=== PATIENT | male | born 1930 | race Caucasian/White ===

== ENCOUNTER 2017-01-03 05:17 | Inpatient (IN) | payer MEDICARE, OTHER ==
[2016-12-28 16:29] VITALS: BMI 27.5
[~2017-01-03] VITALS: Ht 177.8 cm; Wt 85.0 kg
[2017-01-03] VITALS (35 sets, daily range): BP systolic 82–139; BP diastolic 54–85; PULSE 43–97; RESP 9–19; Ht 177.8 cm; Wt 85.0 kg
[2017-01-03] MEDS ORDERED: HYDROCORTISONE 100 MG INJ ONE (06:50)
[2017-01-03] MEDS ORDERED: FENTAnyl 50 MCG/ML VIAL ONE (06:50)
[2017-01-03] MEDS ORDERED: SURGIFOAM POWDER 1 GM KIT ONE (06:52)
[2017-01-03] MEDS ORDERED: THROMBIN 5000 UNIT VIAL ONE (06:52)
[2017-01-03] MEDS ORDERED: CA CHLORIDE 10% 10 ML SYRINGE ONE (06:52)
[2017-01-03] MEDS ORDERED: CEFAZOLIN 1 GM INJ ONE ×2 (06:52→10:03)
--- NOTE | 2017-01-03 06:52 | HPN ---
Date/Time of Note Date/Time of Note DATE: 01/03/17 TIME: 06:51 Interval H&P Admission Note Pt. seen H&P reviewed: No system changes ABBEY CEJA MD Jan 03, 2017 06:52
[2017-01-03] MEDS ORDERED: HEPARIN 1000 UNITS/ML 10 ML INJ ONE (06:53)
[2017-01-03] MEDS ORDERED: HYDROCODONE/APAP (10/325) TAB PO PRN (07:00)
[2017-01-03] MEDS ORDERED: DIPHENHYDRAMINE 50 MG INJ IV PRN ×2 (07:00→09:30)
[2017-01-03] MEDS ORDERED: HYDROmorphONE 0.2 MG/ML PCA IV SCH (07:00)
[2017-01-03] MEDS ORDERED: CEPASTAT LOZENGE MT PRN (07:00)
[2017-01-03] MEDS ORDERED: ONDANSETRON 4 MG INJ IV PRN ×2 (07:00→09:30)
[2017-01-03] MEDS ORDERED: DIPHENHYDRAMINE 25 MG CAP PO PRN (07:00)
[2017-01-03] MEDS ORDERED: CARISOPRODOL 350 MG TAB PO PRN (07:00)
[2017-01-03] MEDS ORDERED: ACETAMINOPHEN 325 MG TAB PO PRN (07:00)
[2017-01-03] MEDS ORDERED: BISACODYL 10 MG SUPP PR PRN (07:00)
[2017-01-03] MEDS ORDERED: NALOXONE (0.4 MG/ML) INJ IV PRN (07:00)
[2017-01-03] MEDS ORDERED: AL HYDROX/MG HYDROX/SIMETH 30 ML CUP PO PRN (07:00)
[2017-01-03] MEDS ORDERED: HYDROmorphONE 0.5 MG/0.5 ML SYG IV PRN (07:00)
[2017-01-03] MEDS: CEFAZOLIN 1 GM/50 ML (PMX) 50 ML IVPB SCH ×3 (07:00→21:26)
[2017-01-03] MEDS ORDERED: VALS320T11 PO (07:20)
[2017-01-03] MEDS ORDERED: DILT240C79 PO (07:20)
[2017-01-03] MEDS ORDERED: CLON0.2T5 PO (07:20)
[2017-01-03] MEDS ORDERED: TRAM50TA2 PO (07:20)
[2017-01-03] MEDS ORDERED: DOCU100C26 PO (07:20)
[2017-01-03] MEDS ORDERED: BUME1TAB18 PO (07:20)
[2017-01-03] MEDS ORDERED: CELE100C PO (07:20)
[2017-01-03] MEDS ORDERED: ASPI-535 PO (07:20)
[2017-01-03] MEDS ORDERED: HYDR-906 PO (07:20)
[2017-01-03] MEDS ORDERED: EZET10TA3 PO (07:20)
[2017-01-03] MEDS ORDERED: ROSU40TA35 PO (07:20)
[2017-01-03] MEDS ORDERED: POTA8CAP PO (07:20)
[2017-01-03] MEDS ORDERED: PRED10TA PO (07:20)
[2017-01-03] MEDS ORDERED: LANS30CA PO (07:20)
[2017-01-03] MEDS ORDERED: MECL-77 PO (07:20)
[2017-01-03] MEDS ORDERED: BUPIVACAINE 0.5%/EPI (SDV) 30 ML INJ ONE (07:59)
[2017-01-03] MEDS ORDERED: CEFAZOLIN 2 GM/50 ML (PMX) 50 ML IVPB SCH (08:00)
[2017-01-03] MEDS ORDERED: LACTATED RINGER'S 1,000 ML IV* ONE (08:00)
[2017-01-03] MEDS ORDERED: CEFAZOLIN 1 GM INJ ZFS ONE (08:10)
[2017-01-03] MEDS ORDERED: THROMBIN 5000 UNIT VIAL TOP ONE (08:10)
[2017-01-03] MEDS ORDERED: SURGIFOAM POWDER 1 GM KIT TOP ONE (08:21)
[2017-01-03] MEDS ORDERED: FENTAnyl 50 MCG/ML VIAL IV PRN (09:30)
[2017-01-03] MEDS ORDERED: HYDROmorphONE (0.2 MG/ML) 10ML SYG IV PRN ×2 (09:30)
[2017-01-03] MEDS ORDERED: LABETALOL HCL 20MG INJ IV PRN (09:30)
[2017-01-03] MEDS ORDERED: METOCLOPRAMIDE 10 MG INJ IV PRN (09:30)
[2017-01-03] MEDS ORDERED: MEPERIDINE 25 MG INJ IV PRN (09:30)
--- NOTE | 2017-01-03 09:37 | RADRPT ---
PROCEDURE: Intraoperative imaging of the lumbar spine with fluoroscopy. CLINICAL INDICATION: Back pain. Intraoperative. TECHNIQUE: Four images of the lumbar spine were obtained in the operating room with an image inten sifier. No radiologist was in attendance. Fluoroscopy time is 6.3 seconds. COMPARISON: No prior study is available for comparison. FINDINGS: Images demonstrate surgical instruments overlying the lumbar spine. IMPRESSION: 1. Intraoperative imaging of the lumbar spine. RPTAT: QQ .Xavi Craig MD, MD Date Time Electronically viewed and signed by .Xavi Craig MD, on 01/03/2017 09:37 .R/
[2017-01-03] MEDS ORDERED: LIDOCAINE 2% (SDV) 5 ML INJ ONE (10:03)
[2017-01-03] MEDS ORDERED: SUGAMMADEX SODIUM 200 MG/2 ML VIAL IV ONE (10:03)
[2017-01-03] MEDS ORDERED: PROPOFOL 20 ML ONE (10:03)
[2017-01-03] MEDS ORDERED: SUCCINYLCHOLINE CHLORIDE 100 MG/5 ML SYG IV ONE (10:03)
[2017-01-03] MEDS ORDERED: ROCURONIUM 50 MG INJ ONE (10:03)
--- NOTE | 2017-01-03 11:09 | SIPON ---
Date/Time of Note Date/Time of Note DATE: 01/03/17 TIME: 11:07 Operative Report Preoperative Diagnosis Lumbar stenosis with retained lumbar hardware Postoperative Diagnosis Lumbar stenosis with retained lumbar hardware Operation/Procedure Performed Lumbar decompression with removal of lumbar hardware Surgeon see signature line campus administrative assistant KASSY Peoples Anesthesia: general Estimated blood loss: 150 - 200 ml's Transfusion Required none Specimen Hardware and spinous process Grafts/Implants none Complications none ABBEY CEJA MD Jan 03, 2017 11:09
[2017-01-03] MEDS: FENTAnyl 50 MCG/ML VIAL IV PRN ×4 (11:43→12:30)
--- NOTE | 2017-01-03 11:44 | OPR ---
DATE OF OPERATION: 01/03/2017 PREOPERATIVE DIAGNOSES: 1. Previous L4-5, L3-4 instrumented fusion. 2. Previous right L4-5 decompression. 3. Spinal stenosis with radiculopathy at L4-5, L5-S1. 4. Status post coronary artery bypass graft x2. POSTOPERATIVE DIAGNOSES: 1. Previous L4-5, L3-4 instrumented fusion. 2. Previous right L4-5 decompression. 3. Spinal stenosis with radiculopathy at L4-5, L5-S1. 4. Status post coronary artery bypass graft x2. PROCEDURE: 1. Removal of lumbar hardware at L3, L4, L5 bilaterally. 2. Evaluation of lumbar fusion at L3-4, L4-5. 3. Revision decompression at L4-5. 4. Central decompression at L5-S1. 5. Decompression of L4, L5 and S1 nerve roots bilaterally. 6. Use of C-arm fluoroscopy with interpretation without radiologist present. 7. Use of allograft. 8. Intraoperative neuromonitoring (3 hours). PRIMARY SURGEON: Uri Cummins MD METAL FABRICATOR HELPER: KASSY Peoples FINDINGS: Neuromonitoring at the start of the case revealed right L3 amplitude down 20%, right L4 amplitude down 50%, left L5 and S1 amplitude down 20%, right L5 amplitude down 30%, right S1 amplitude down 50%. At the end of the case, nerve signals returned to normal. The patient had fusion at L3-4 and L4-5 with stenosis at L4-5 and L5-S1. ESTIMATED BLOOD LOSS: 200 mL. DRAINS: One. SPECIMENS: L5 spinous process and hardware. COMPLICATIONS OF PROCEDURES: None. ANESTHESIOLOGIST: Dr. Maravilla. TYPE OF ANESTHESIA: General. INDICATIONS FOR PROCEDURE: This is an 86-year-old gentleman who has had previous spinal surgeries on 3 occasions including decompression at L4-5 as well as fusion at L3-4 and L4-5. He had failed nonoperative measures, therefore , I recommended proceeding with the above-mentioned surgery given the radiating pains to the lower extremity. DESCRIPTION OF PROCEDURE IN DETAIL: The patient was identified in the preoperative holding area, given Ancef antibiotics in the operating room, where he was successfully placed under general anesthesia. Neuromonitoring leads were placed, sequential compressive devices were applied, Mock catheter was introduced. Arterial line was placed. Neuromonitoring was utilized during the procedure for 3 hours to include SSEP, MEP and EMG. Start time was 8 a.m., closure time was 11 a.m. The patient was placed on the operating table in prone position over the Prem frame. All bony prominences were well padded. The back was then prepped and draped in usual sterile fashion. Using the C-arm fluoroscope, I identified the incision site. I anesthetized the skin with Marcaine and epinephrine. I utilized the patient's previous incision. Skin was incised down to dorsal fascia, it was incised with Bovie cautery. I then subperiosteally dissected from L3-S1. I identified the hardware at L3, L4, and L5. I removed the set screws bilaterally. I removed the terrance. I evaluated the fusion and removed each of the screws. I then placed allograft into the screw holes using Fibergraft. Next, I performed a central decompressive laminectomy at L4-5 and L5-S1. The patient had previous surgery at L4-5 on the right side. There is quite a bit of scar tissue adding at least 45 minutes to the surgery. I was able to decompress the central canal. I decompressed the bilateral L4. L5 and S1 nerve roots. Once the decompression was done, all nerve signals returned to normal. I irrigated the wound. Hemostasis achieved with bipolar cautery, Surgifoam and bone wax. Valsalva was performed and there was no leak of CSF. I then injected PPP with thrombin over the dura for hemostatic purposes. I placed a deep subfascial drain and closed the fascia with #1 StrattaFix suture. I then closed subcutaneous tissue with 2-0 Vicryl stitch. A 4-0 Monocryl closure was then performed. Dermabond and sterile dressings were then applied. The patient was then awakened from anesthesia and taken to the ICU in stable condition. Lap, sponge and instrument counts were correct x2. He will be admitted to ICU given his cardiac condition. He will start physical therapy and antibiotics as well as undergo neurovascular checks. Dictated By: URI WELCH/ISSA Conf#: [id number] DID#: [id number] STEPHEN
[2017-01-03] MEDS: DOCUSATE SODIUM 100 MG CAP PO SCH ×3 (12:00→21:27)
[2017-01-03] MEDS: ASCORBIC ACID 500 MG TAB PO SCH (12:00)
[2017-01-03] MEDS: FERROUS SULFATE (EC) 325 MG TAB PO SCH ×3 (12:00→21:27)
[2017-01-03] MEDS: D5W-0.45 NACL + KCL 20 MEQ 1,000 ML IV SCH ×2 (13:00→19:44)
[2017-01-03] MEDS ORDERED: DOCUSATE SODIUM 100 MG CAP PO PRN (13:00)
[2017-01-03] MEDS: HYDROmorphONE 0.2 MG/ML PCA IV SCH (14:35)
--- NOTE | 2017-01-03 14:35 | CONS ---
DATE OF ADMISSION: 01/03/2017 DATE OF CONSULTATION: 01/03/2017 TYPE OF CONSULTATION: Medical consultation. Thank you very much, Dr. Cummins, for allowing me to evaluate the above patient who just underwent L3-L5 hardware removal and decompression laminectomy. HISTORICAL EVENTS: As you well know, this patient did undergo 3 spinal surgeries in 2013 and subseq uent to this continued to have low back pain and radicular leg pain. Because of conservative therap y that did not provide relief including epidural injections, he decided to proceed with surgery. Po stoperatively, in the ICU, he notes modest back pain, but denies cough, wheezing, shortness of breat h, nausea or vomiting. He does note some mild abdominal bloating. Importantly, the patient states after his first back surgery he did have mild edema but this has increased over the last several mon ths and does not recall having had any diagnostic studies to discern the cause of this. PAST MEDICAL HISTORY: Includes: 1. Coronary disease, undergoing coronary artery bypass surgery in 1990, complicated by wound infect ion and multiple reconstructive surgeries. 2. Two stents placed in 1992. Last angiogram in 2011 revealed occluded SVG and LOYOLA and no obstruc tive lesions in the cheesh-na vessels with patent RCA stents. Last echo in 03/2015 revealed mild LVH. Lexiscan in 11/2015 revealed no ischemia. Undergoing cardiology evaluation preoperatively. 3. Hypertension. 4. Hyperlipidemia. 5. History of sciatica. 6. History of temporal arteritis. 7. Prior appendectomy. 8. Prior hernia repair. PRESENT MEDICATIONS: 1. Aspirin 81. 2. Cardizem 120. 3. Celebrex 100. 4. Clonidine 0.2 at bedtime. 5. Crestor 40. 6. Colace 100 mg per day. 7. Zetia 10 mg per day. 8. Flexeril 10 per day. 9. Furosemide 40 mg per day. 10. Gabapentin 100 mg t.i.d. 11. Potassium chloride 10 mEq per day. 12. Prednisone 10 per day. 13. Prevacid 30 per day. 14. Valsartan 320/12.5 daily. SOCIAL HISTORY: He is a nonsmoker, socially drinks. PHYSICAL EXAMINATION: VITAL SIGNS: BP 128/80, pulse 70, respirations are 20, he was afebrile. EYES: Extraocular muscles were full. NOSE, MOUTH, AND THROAT: Normal. NECK: Supple. There was no jugular venous distention, thyroid enlargement or adenopathy. Carotids 2+. LUNGS: Clear. HEART: Rhythm regular, no murmur. No third or fourth sound. ABDOMEN: Distended. Liver and spleen were not enlarged. No masses, no tenderness. Bowel sounds a re present. EXTREMITIES: Reduced peripheral pulses. Feet were warm. Trace to 1+ pretibial edema. NEUROLOGIC: No lateralizing motor weakness. IMPRESSION: 1. Stable postop lumbar laminectomy and hardware removal. 2. History of hypertension. Will continue antihypertensive therapy and monitor BP throughout. 3. Hyperlipidemia to continue cholesterol lowering medications. 4. Leg edema, we will be certain no silent deep venous thromboses are present, although this seems unlikely. This is probably related to nonsteroidals and immobility. 5. History of temporal arteritis will continue prednisone as he was taking as an outpatient. We will follow with you daily. Cardiology will see and followup. Dictated By: PAYAL PHIPPS/ISSA Conf#: [id number] DID#: [id number]
--- NOTE | 2017-01-03 15:45 | RADRPT ---
PROCEDURE: US Lower extremity Venous. CLINICAL INDICATION: Bilateral leg swelling TECHNIQUE: Multiple sonographic images of the bilateral lower extremity deep venous system was obt ained utilizing calixto scale, color-flow, compressive sonography and doppler imaging with augmentation . COMPARISON: None. FINDINGS: There is normal compressibility, phasicity and Doppler flow within the bilateral common femoral, fem oral and popliteal veins. Visualized portions of the calf veins are patent. IMPRESSION: No sonographic evidence for deep venous thrombosis. RPTAT:AAJJ Gabriella Anand Physician Date Time Electronically viewed and signed by Gabriella Anand Physician on 01/03/2017 15:44 /
--- NOTE | 2017-01-03 17:39 | CONS ---
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 cont monitoring, hold avn blockers 3) h/o CAD - restart asa when safe post op - cont statin 4) HTN-- controlled 5) HLD - on zeita, statin Problems: Consultation Date/Type/Reason Admit Date/Time Jan 03, 2017 at 05:17 Date of Consultation: Jan 13, 2017 Type of Consultation: Cardiology Reason for Consultation Irregular heart beat Referring Provider: PAYAL BEST MD Hx of Present Illness Patient has a history of spinal stenosis is currently admitted due to low back pain and underwent surgery yesterday. Patient has a history of coronary artery disease, hypertension, hyperlipidemia status post CABG in 1990 and PCI to the RCA in 1992. His normal left ventricular systolic function. Review of telemetry shows sinus rhythm with first-degree heart block and intermittent secondary type I heart block. No pauses. Patient denies any chest pain shortness of breath palpitations. He reports chronic dizziness which is unchanged. No PND orthopnea or edema. Pain is moderately conlled at this time Constitutional: no complaints Eyes: no complaints ENT: no complaints Respiratory: no complaints Cardiovascular: no complaints Gastrointestinal: no complaints Musculoskeletal: back pain Skin: no complaints Neurologic: dizziness Psychological: nl mood/affect, no complaints Immunologic: no complaints Past Medical History CAD- CABG 1990, PCI to RCA 1991, 2011 cath occluded LOYOLA, SVG graft, patent [place] vessels SPinal stenosis HTN HLD Sciatica Past Surgical History Past Surgical Hx: appendectomy, coronary bypass surgery Family History Significant Family History: heart disease Social History Alcohol Use: none Smoking Status: Never smoker Drug Use: none Exam/Review of Systems Vital Signs Vitals Vital Signs Date Time Temp Pulse Resp B/P Pulse Ox O2 Delivery O2 Flow Rate FiO2 01/03/17 17:15 95 19 106/56 95 Room Air 01/03/17 16:00 98.1 01/03/17 14:00 2.0 Exam Constitutional: alert, oriented Psych: nl mood/affect, no complaints Head: normocephalic Eyes: nl conjunctiva ENMT: mucosa pink and moist, nl external ears & nose Neck: non-tender, supple, No jvd Respiratory: clear to auscultation, normal air movement Cardiovascular: nl pulses, regular rate and rhythm, systolic murmur, No S3, No S4, No bruits, No diastolic murmur, No edema, No irregular rhythm Gastrointestinal: non-tender, soft Musculoskeletal: nl extremities to inspection Extremities: normal pulses Neurological: SPEECH PATHOLOGY ASSISTANT II-XII intact, nl mental status, nl speech, nl strength Imaging Free Text/Dictation imaging reports reviewed (Cxr, venous u/s) in emr tele reviewed: sinus 1st degree avb, intermittent 2nd degree type 1 Medications Medications Current Medications Potassium Chloride/Dextrose/ Sod Cl (D5-1/2ns + KCl 20 Meq) 1,000 ml @ 100 mls/ hr Q10H IV Last administered on 01/03/17 13:00; Admin Dose 100 MLS/HR; Start 01/03/17 at 06:52 Acetaminophen/ Hydrocodone Bitart ([place] (10/325)) 1 tab Q4H PRN PO PAIN LEVEL 1-5; Start 01/03/17 at 07:00 Acetaminophen/ Hydrocodone Bitart ([place] (10/325)) 2 tab Q4H PRN PO PAIN LEVEL 6-10; Start 01/03/17 at 07:00 Hydromorphone HCl (Dilaudid) 0.2 mg Q1H PRN IV BREAKTHROUGH PAIN; Start at 07:00 Ondansetron HCl (Zofran Inj) 4 mg Q6H PRN IV NAUSEA AND/OR VOMITING; Start 01/03/17 at 07:00 Bisacodyl (Dulcolax Supp) 10 mg DAILY PRN [place] CONSTIPATION; Start 01/03/17 at 07 :00 Docusate Sodium (Colace) 100 mg BID PO Last administered on 01/03/17 14:39; Admin Dose 100 MG; Start 01/03/17 at 09:00 Pantoprazole (Protonix Tab) 40 mg DAILY@06 PO ; Start 01/04/17 at 06:00 Al Hydrox/Mg Hydrox/Simethicone (Mag-Al Plus) 15 ml Q6H PRN PO CONSTIPATION/ DYSPEPSIA; Start 01/03/17 at 07:00 Acetaminophen (Tylenol Tab) 650 mg Q4H PRN PO GHOTRA OR TEMP GREATER THAN 101.3F; Start 01/03/17 at 07:00 Ferrous Sulfate (Ferrous Sulfate (Ec)) 325 mg TID PO Last administered on 14:39; Admin Dose 325 MG; Start 01/03/17 at 09:00 Ascorbic Acid (Vitamin C) 1,000 mg DAILY PO ; Start 01/03/17 at 09:00 Carisoprodol (Soma) 350 mg TID PRN PO MUSCLE SPASMS; Start 01/03/17 at 07:00 Phenol (Cepastat Lozenge) 1 lozenge PRN PRN [place] SORE THROAT; Start 01/03/17 at 07:00 Diphenhydramine HCl (Benadryl) 25 mg Q6H PRN PO ITCHING; Start 01/03/17 at 07: 00 Diphenhydramine HCl (Benadryl) 25 mg Q6H PRN IV ITCHING; Start 01/03/17 at 07: 00 Naloxone HCl (Narcan) 0.2 mg Q2M PRN IV RR 8 BREATHS/MIN OR LESS; Start at 07:00 Miscellaneous Information 1. Hold MECHANICAL ASSEMBLY at 1,000... MECHANICAL ASSEMBLY IV ; Start 01/03/17 at 07: 00 Clonidine (Catapres) 0.2 mg HS PO ; Start 01/03/17 at 21:00 Diltiazem HCl (Cardizem Cd) 240 mg DAILY PO ; Start 01/04/17 at 09:00 Docusate Sodium (Colace) 100 mg BID PRN PO CONSTIPATION; Start 01/03/17 at 13: 00 EZETIMIBE (Zetia) 10 mg DAILY PO ; Start 01/04/17 at 09:00 Prednisone (Prednisone) 10 mg DAILY PO ; Start 01/04/17 at 09:00 Rosuvastatin Calcium (Crestor) 40 mg QHS PO ; Start 01/03/17 at 21:00 Valsartan (Diovan) 320 mg DAILY PO ; Start 01/04/17 at 09:00 Hydromorphone HCl MECHANICAL ASSEMBLY to be started in PACU Q4PCA IV Last administered on 14:35; Admin Dose 6 MG; Start 01/03/17 at 14:30 Cefazolin Sodium (Ancef 1 Gm/50 ml (Pmx)) 50 ml @ 100 mls/hr Q8H IVPB ; Start 01/03/17 at 20:00; Stop 01/04/17 at 04:29 MATT BENAVIDEZ Jan 03, 2017 17:39
[2017-01-03] MEDS: ROSUVASTATIN CALCIUM 40 MG TABLET PO SCH (21:27)
[2017-01-04] VITALS (15 sets, daily range): BP systolic 108–126; BP diastolic 51–76; PULSE 70–97; RESP 9–20
[2017-01-04] MEDS: D5W-0.45 NACL + KCL 20 MEQ 1,000 ML IV SCH ×2 (04:25→12:52)
[2017-01-04] MEDS: CEFAZOLIN 1 GM/50 ML (PMX) 50 ML IVPB SCH (04:25)
[2017-01-04 05:03] LABS: BASOPHILS % 0.1 % (0.0-2.0); EOSINOPHILS % 0.3 % (0.0-7.0); HEMATOCRIT 29.9 % (42.0-52.0); HEMOGLOBIN 9.7 g/dl (14.0-18.0); LYMPHOCYTES % 8.8 % (15.0-51.0); MEAN CORPUSCULAR HEMOGLOBIN 31.1 pg (29.0-33.0); MEAN CORPUSCULAR HGB CONC 32.4 g/dl (32.0-37.0); MEAN CORPUSCULAR VOLUME 95.8 fl (82.0-101.0); MEAN PLATELET VOLUME 10.6 fl (7.4-10.4); MONOCYTE # 1.4 10^3/ul (0.3-0.9); MONOCYTES % 11.5 % (0.0-11.0); NEUTROPHIL # 9.3 10^3/ul (1.6-7.5); NEUTROPHILS % 78.9 % (39.0-77.0); PLATELET COUNT 180 10^3/UL (140-415); RED BLOOD COUNT 3.12 10^6/ul (4.70-6.10); RED CELL DISTRIBUTION WIDTH 12.8 % (11.5-14.5); WHITE BLOOD COUNT 11.8 10^3/ul (4.8-10.8)
[2017-01-04] MEDS: PANTOPRAZOLE (EC) 40 MG TAB PO SCH (05:20)
[2017-01-04 05:36] LABS: CALCIUM 8.7 mg/dl (8.4-10.2); CREATININE 2.32 mg/dl (0.61-1.24); MAGNESIUM 1.8 mg/dl (1.7-2.5); POTASSIUM 4.4 mmol/L (3.5-5.1)
[2017-01-04 05:49] LABS: ADD UMIC YES; UR ASCORBIC ACID NEGATIVE (NEGATIVE); UR BILIRUBIN (Dip) NEGATIVE (NEGATIVE); UR BLOOD (Dip) 2+ mg/dL (NEGATIVE); UR CLARITY CLOUDY (CLEAR); UR COLOR YELLOW (YELLOW); UR GLUCOSE (Dip) 1+ mg/dL (NEGATIVE); UR KETONES (Dip) TRACE mg/dL (NEGATIVE); UR LEUKOCYTE ESTERASE (Dip) NEGATIVE Leu/ul (NEGATIVE); UR NITRITE (Dip) NEGATIVE (NEGATIVE); UR RBC 64 /HPF (0-5); UR SPECIFIC GRAVITY (Dip) 1.023 (1.003-1.030); UR TOTAL PROTEIN (Dip) 1+ mg/dl (NEGATIVE); UR UROBILINOGEN (Dip) NEGATIVE (NEGATIVE)
--- NOTE | 2017-01-04 08:27 | CONS ---
Date/Time of Note Date/Time of Note DATE: 01/04/17 TIME: 08:23 Assessment/Plan Assessment/Plan Additional Assessment/Plan 1. Post op lumbar back surgery, stable 2. Acute renal failure with baseline Scr 1.9, ATN vs vol contraction, lowest periop BP was 95 systolic, ARB was dc'd, Bee ordered, jacobsen is in place. 3. Arrhythmia, pauses, and ? sec degree block, non-sustained ventric ectopy, await cards follow up re--transfer to ortho or tele 4. HBP, well controlled 5. Hyperlipidemia, statin was cont 6. Known ASHD, asx Consultation Date/Type/Reason Admit Date/Time Jan 03, 2017 at 05:17 Initial Consult Date Detailed Summary Respiratory: No cough, No shortness of breath, No wheezing Cardiovascular: No chest pain Gastrointestinal: no complaints Genitourinary: other (jacobsen in place) Musculoskeletal: back pain (is mild-mod) Exam/Review of Systems Vital Signs Vitals Vital Signs Date Time Temp Pulse Resp B/P Pulse Ox O2 Delivery O2 Flow Rate FiO2 01/04/17 07:00 89 11 113/71 96 01/04/17 05:00 Room Air 01/04/17 04:00 98.1 2.0 Intake and Output 01/03/17 01/03/17 01/04/17 15:00 23:00 07:00 Intake Total 1890 ml 1190 ml 425 ml Output Total 575 ml 365 ml 390 ml Balance 1315 ml 825 ml 35 ml Exam Neck: No jvd Respiratory: clear to auscultation Cardiovascular: regular rate and rhythm Gastrointestinal: soft Extremities: edema (no change and no calf tend), No tenderness Results Result Diagram: 01/04/172 01/04/17 0442 Results 24 hrs Laboratory Tests Test 01/03/17 18:00 01/04/17 04:42 Urine Color YELLOW Urine Clarity CLOUDY A Urine pH 5.0 Urine Specific Kemp 1.023 Urine Ketones TRACE A Urine Nitrite NEGATIVE Urine Bilirubin NEGATIVE Urine Urobilinogen NEGATIVE Urine Leukocyte Esterase NEGATIVE Urine Microscopic RBC 64 H Urine Microscopic WBC 7 H Urine Hemoglobin 2+ H Urine Glucose 1+ H Urine Total Protein 1+ H White Blood Count 11.8 H Red Blood Count 3.12 L Hemoglobin 9.7 L Hematocrit 29.9 L Mean Corpuscular Volume 95.8 Mean Corpuscular Hemoglobin 31.1 Mean Corpuscular Hemoglobin Concent 32.4 Red Cell Distribution Width 12.8 Platelet Count 180 Mean Platelet Volume 10.6 H Neutrophils % 78.9 H Lymphocytes % 8.8 L Monocytes % 11.5 H Eosinophils % 0.3 Basophils % 0.1 Nucleated Red Blood Cells % 0.0 Neutrophils # 9.3 H Lymphocytes # 1.0 Monocytes # 1.4 H Eosinophils # 0.0 Basophils # 0.0 Nucleated Red Blood Cells # 0.0 Sodium Level 140 Potassium Level 4.4 Chloride Level 108 Carbon Dioxide Level 23 Anion Gap 13 Blood Urea Nitrogen 41 H Creatinine 2.32 H Glucose Level 132 Calcium Level 8.7 Magnesium Level 1.8 Thyroid Stimulating Hormone (TSH) 0.648 Medications Medications Current Medications Potassium Chloride/Dextrose/ Sod Cl (D5-1/2ns + KCl 20 Meq) 1,000 ml @ 100 mls/ hr Q10H IV Last administered on 01/04/17 04:25; Admin Dose 100 MLS/HR; Start 01/03/17 at 06:52 Acetaminophen/ Hydrocodone Bitart ([place] (10/325)) 1 tab Q4H PRN PO PAIN LEVEL 1-5; Start 01/03/17 at 07:00 Acetaminophen/ Hydrocodone Bitart ([place] (10/325)) 2 tab Q4H PRN PO PAIN LEVEL 6-10; Start 01/03/17 at 07:00 Hydromorphone HCl (Dilaudid) 0.2 mg Q1H PRN IV BREAKTHROUGH PAIN; Start at 07:00 Ondansetron HCl (Zofran Inj) 4 mg Q6H PRN IV NAUSEA AND/OR VOMITING; Start 01/03/17 at 07:00 Bisacodyl (Dulcolax Supp) 10 mg DAILY PRN [place] CONSTIPATION; Start 01/03/17 at 07 :00 Docusate Sodium (Colace) 100 mg BID PO Last administered on 01/03/17 21:27; Admin Dose 100 MG; Start 01/03/17 at 09:00 Pantoprazole (Protonix Tab) 40 mg DAILY@06 PO Last administered on 01/04/17 05 :20; Admin Dose 40 MG; Start 01/04/17 at 06:00 Al Hydrox/Mg Hydrox/Simethicone (Mag-Al Plus) 15 ml Q6H PRN PO CONSTIPATION/ DYSPEPSIA Last administered on 01/04/17 04:25; Admin Dose 15 ML; Start at 07:00 Acetaminophen (Tylenol Tab) 650 mg Q4H PRN PO GHOTRA OR TEMP GREATER THAN 101.3F; Start 01/03/17 at 07:00 Ferrous Sulfate (Ferrous Sulfate (Ec)) 325 mg TID PO Last administered on 21:27; Admin Dose 325 MG; Start 01/03/17 at 09:00 Ascorbic Acid (Vitamin C) 1,000 mg DAILY PO ; Start 01/03/17 at 09:00 Carisoprodol (Soma) 350 mg TID PRN PO MUSCLE SPASMS; Start 01/03/17 at 07:00 Phenol (Cepastat Lozenge) 1 lozenge PRN PRN [place] SORE THROAT; Start 01/03/17 at 07:00 Diphenhydramine HCl (Benadryl) 25 mg Q6H PRN PO ITCHING; Start 01/03/17 at 07: 00 Diphenhydramine HCl (Benadryl) 25 mg Q6H PRN IV ITCHING; Start 01/03/17 at 07: 00 Naloxone HCl (Narcan) 0.2 mg Q2M PRN IV RR 8 BREATHS/MIN OR LESS; Start at 07:00 Miscellaneous Information 1. Hold COMM[employer]ATIONS POLICE LIEUTENANT at 1,000... [employer]IE[employer]NT IV ; Start 01/03/17 at 07: 00 Clonidine (Catapres) 0.2 mg HS PO ; Start 01/03/17 at 21:00 Diltiazem HCl (Cardizem Cd) 240 mg DAILY PO ; Start 01/04/17 at 09:00 Docusate Sodium (Colace) 100 mg BID PRN PO CONSTIPATION; Start 01/03/17 at 13: 00 EZETIMIBE (Zetia) 10 mg DAILY PO ; Start 01/04/17 at 09:00 Prednisone (Prednisone) 10 mg DAILY PO ; Start 01/04/17 at 09:00 Rosuvastatin Calcium (Crestor) 40 mg QHS PO Last administered on 01/03/17 21: 27; Admin Dose 40 MG; Start 01/03/17 at 21:00 Valsartan (Diovan) 320 mg DAILY PO ; Start 01/04/17 at 09:00 Hydromorphone HCl (Dilaudid [employer]) [employer] to be started in PACU Q4PCA IV Last administered on 01/03/17t 14:35; Admin Dose 6 MG; Start 01/03/17 at 14:30 PAYAL BEST MD Jan 04, 2017 08:27
[2017-01-04] MEDS ORDERED: DILTIAZEM (CD) 240 MG CAP PO SCH (09:00)
[2017-01-04] MEDS ORDERED: VALSARTAN 160 MG TAB PO SCH (09:00)
[2017-01-04] MEDS: predniSONE 10 MG TAB PO SCH (09:43)
[2017-01-04] MEDS: HYDROCODONE/APAP (10/325) TAB PO PRN (09:43)
[2017-01-04] MEDS: DOCUSATE SODIUM 100 MG CAP PO SCH ×2 (09:43→21:00)
[2017-01-04] MEDS: ASCORBIC ACID 500 MG TAB PO SCH (09:45)
[2017-01-04] MEDS: EZETIMIBE 10 MG TAB PO SCH (09:45)
[2017-01-04] MEDS: FERROUS SULFATE (EC) 325 MG TAB PO SCH ×3 (09:46→21:05)
--- NOTE | 2017-01-04 10:05 | CONS ---
Date/Time of Note Date/Time of Note DATE: 01/04/17 TIME: 10:01 Assessment/Plan Assessment/Plan Chief Complaint/Hosp Course Impression: 1) Spinal stenosis- s/p lumbar surgery - pain/rehab mgmt per surgery 2) Irregular rhythm- 2nd degree type 1 block, no pauses - hold cardizem - cont clonidine for now as bp controlled (though can cause bradycardia as well) - no advanced block, ok to d/c tele 3) h/o CAD - restart asa when safe post op, defer to surgery - cont statin 4) HTN-- controlled, on valsartan, clonidine. 5) HLD - on zeita, statin d/w Dr. Best. ok to d/c tele, transfer to ortho floor Problems: Consultation Date/Type/Reason Admit Date/Time Jan 03, 2017 at 05:17 Initial Consult Date 01/13/17 Type of Consultation: Cardiology Referring Provider: PAYAL BEST MD 24 HR Interval Summary Free Text/Dictation No acute events. Telemetry reviewed. Patient still with intermittent second- degree type I block. Does have short runs of 2-1 block. No severe bradycardia or pauses. Patient reports mild epigastric discomfort as he is not eating breakfast. No chest pain pressure. No shortness of breath. No presyncope. Does have chronic dizziness again. + back pain Detailed Summary ENT: no complaints Respiratory: no complaints Cardiovascular: no complaints Gastrointestinal: pain Exam/Review of Systems Vital Signs Vitals Vital Signs Date Time Temp Pulse Resp B/P Pulse Ox O2 Delivery O2 Flow Rate FiO2 01/04/17 08:00 81 01/04/17 07:00 11 113/71 96 01/04/17 05:00 Room Air 01/04/17 04:00 98.1 2.0 Intake and Output 01/03/17 01/03/17 01/04/17 15:00 23:00 07:00 Intake Total 1890 ml 1190 ml 425 ml Output Total 575 ml 365 ml 390 ml Balance 1315 ml 825 ml 35 ml Exam Constitutional: alert, oriented Psych: nl mood/affect, no complaints Head: normocephalic Eyes: nl conjunctiva ENMT: nl external ears & nose, nl lips & teeth Neck: non-tender, supple, No jvd Respiratory: clear to auscultation, normal air movement Cardiovascular: nl pulses, regular rate and rhythm, systolic murmur Gastrointestinal: non-tender, soft Musculoskeletal: nl extremities to inspection Neurological: ARTIST AND REPERTOIRE MANAGER II-XII intact, nl mental status, nl speech Results Result Diagram: 01/04/1744101/04/17441 Results 24 hrs Laboratory Tests Test 01/03/17 18:00 01/04/17 04:40 01/04/17 04:42 Urine Color YELLOW Urine Clarity CLOUDY A Urine pH 5.0 Urine Specific [place] 1.023 Urine Ketones TRACE A Urine Nitrite NEGATIVE Urine Bilirubin NEGATIVE Urine Urobilinogen NEGATIVE Urine Leukocyte Esterase NEGATIVE Urine Microscopic RBC 64 H Urine Microscopic WBC 7 H Urine Hemoglobin 2+ H Urine Glucose 1+ H Urine Total Protein 1+ H B-Type Natriuretic Peptide 620 H White Blood Count 11.8 H Red Blood Count 3.12 L Hemoglobin 9.7 L Hematocrit 29.9 L Mean Corpuscular Volume 95.8 Mean Corpuscular Hemoglobin 31.1 Mean Corpuscular Hemoglobin Concent 32.4 Red Cell Distribution Width 12.8 Platelet Count 180 Mean Platelet Volume 10.6 H Neutrophils % 78.9 H Lymphocytes % 8.8 L Monocytes % 11.5 H Eosinophils % 0.3 Basophils % 0.1 Nucleated Red Blood Cells % 0.0 Neutrophils # 9.3 H Lymphocytes # 1.0 Monocytes # 1.4 H Eosinophils # 0.0 Basophils # 0.0 Nucleated Red Blood Cells # 0.0 Sodium Level 140 Potassium Level 4.4 Chloride Level 108 Carbon Dioxide Level 23 Anion Gap 13 Blood Urea Nitrogen 41 H Creatinine 2.32 H Glucose Level 132 Calcium Level 8.7 Magnesium Level 1.8 Thyroid Stimulating Hormone (TSH) 0.648 Medications Medications Current Medications Potassium Chloride/Dextrose/ Sod Cl (D5-1/2ns + KCl 20 Meq) 1,000 ml @ 100 mls/ hr Q10H IV Last administered on 01/04/17t 04:25; Admin Dose 100 MLS/HR; Start 01/03/17 at 06:52 Acetaminophen/ Hydrocodone Bitart ([place] (10/325)) 1 tab Q4H PRN PO PAIN LEVEL 1-5; Start 01/03/17 at 07:00 Acetaminophen/ Hydrocodone Bitart ([place] (10/325)) 2 tab Q4H PRN PO PAIN LEVEL 6-10; Start 01/03/17 at 07:00 Hydromorphone HCl (Dilaudid) 0.2 mg Q1H PRN IV BREAKTHROUGH PAIN; Start at 07:00 Ondansetron HCl (Zofran Inj) 4 mg Q6H PRN IV NAUSEA AND/OR VOMITING; Start 01/03/17 at 07:00 Bisacodyl (Dulcolax Supp) 10 mg DAILY PRN [place] CONSTIPATION; Start 01/03/17 at 07 :00 Docusate Sodium (Colace) 100 mg BID PO Last administered on 01/03/17 21:27; Admin Dose 100 MG; Start 01/03/17 at 09:00 Pantoprazole (Protonix Tab) 40 mg DAILY@06 PO Last administered on 01/04/17 05 :20; Admin Dose 40 MG; Start 01/04/17 at 06:00 Al Hydrox/Mg Hydrox/Simethicone (Mag-Al Plus) 15 ml Q6H PRN PO CONSTIPATION/ DYSPEPSIA Last administered on 01/04/17 04:25; Admin Dose 15 ML; Start at 07:00 Acetaminophen (Tylenol Tab) 650 mg Q4H PRN PO GHOTRA OR TEMP GREATER THAN 101.3F; Start 01/03/17 at 07:00 Ferrous Sulfate (Ferrous Sulfate (Ec)) 325 mg TID PO Last administered on 21:27; Admin Dose 325 MG; Start 01/03/17 at 09:00 Ascorbic Acid (Vitamin C) 1,000 mg DAILY PO ; Start 01/03/17 at 09:00 Carisoprodol (Soma) 350 mg TID PRN PO MUSCLE SPASMS; Start 01/03/17 at 07:00 Phenol (Cepastat Lozenge) 1 lozenge PRN PRN [place] SORE THROAT; Start 01/03/17 at 07:00 Diphenhydramine HCl (Benadryl) 25 mg Q6H PRN PO ITCHING; Start 01/03/17 at 07: 00 Diphenhydramine HCl (Benadryl) 25 mg Q6H PRN IV ITCHING; Start 01/03/17 at 07: 00 Naloxone HCl (Narcan) 0.2 mg Q2M PRN IV RR 8 BREATHS/MIN OR LESS; Start at 07:00 Miscellaneous Information 1. Hold BLEACH MACHINE OPERATOR at 1,000... BLEACH MACHINE OPERATOR IV ; Start 01/03/17 at 07: 00 Diltiazem HCl (Cardizem Cd) 240 mg DAILY PO ; Start 01/04/17 at 09:00 Docusate Sodium (Colace) 100 mg BID PRN PO CONSTIPATION; Start 01/03/17 at 13: 00 EZETIMIBE (Zetia) 10 mg DAILY PO ; Start 01/04/17 at 09:00 Prednisone (Prednisone) 10 mg DAILY PO ; Start 01/04/17 at 09:00 Rosuvastatin Calcium (Crestor) 40 mg QHS PO Last administered on 01/03/17 21: 27; Admin Dose 40 MG; Start 01/03/17 at 21:00 Hydromorphone HCl (Dilaudid BLEACH MACHINE OPERATOR) BLEACH MACHINE OPERATOR to be started in PACU Q4PCA IV Last administered on 01/03/17 14:35; Admin Dose 6 MG; Start 01/03/17 at 14:30 Clonidine 0.1 mg 0.1 mg TID PO ; Start 01/04/17 at 09:00 Sodium Chloride (NS) 1,000 ml @ 80 mls/hr [id number] IV ; Start 01/04/17 at 08:30 Procedures Procedures imaging, provider notes reviewed in emr MATT BENAVIDEZ Jan 04, 2017 10:05
[2017-01-04 10:31] LABS: ADD UMIC YES; UR ASCORBIC ACID NEGATIVE (NEGATIVE); UR BILIRUBIN (Dip) NEGATIVE (NEGATIVE); UR BLOOD (Dip) 2+ mg/dL (NEGATIVE); UR CLARITY SLIGHTLY CLOUDY (CLEAR); UR COLOR YELLOW (YELLOW); UR GLUCOSE (Dip) NEGATIVE (NEGATIVE); UR KETONES (Dip) NEGATIVE (NEGATIVE); UR LEUKOCYTE ESTERASE (Dip) NEGATIVE Leu/ul (NEGATIVE); UR NITRITE (Dip) NEGATIVE (NEGATIVE); UR RBC 17 /HPF (0-5); UR TOTAL PROTEIN (Dip) NEGATIVE (NEGATIVE); UR UROBILINOGEN (Dip) NEGATIVE (NEGATIVE)
--- NOTE | 2017-01-04 11:48 | PN ---
Date/Time of Note Date/Time of Note DATE: 01/04/17 TIME: 11:47 Assessment/Plan Lines/Catheters IV Catheter Type (from Nrsg): A Line Mock in Place (from Nrsg): Yes Assessment/Plan Assessment/Plan s/p lumbar decompression transfer to continue current care Subjective 24 Hr Interval Summary doing well, improved leg pain, no chest pain Exam/Review of Systems Vital Signs Vitals Vital Signs Date Time Temp Pulse Resp B/P Pulse Ox O2 Delivery O2 Flow Rate FiO2 01/04/17 08:00 87 12 108/72 92 01/04/17 05:00 Room Air 01/04/17 04:00 98.1 2.0 Intake and Output 01/03/17 01/03/17 01/04/17 14:59 22:59 06:59 Intake Total 1790 ml 1290 ml 425 ml Output Total 545 ml 365 ml 420 ml Balance 1245 ml 925 ml 5 ml Exam Free Text/Dictation neuro intact Results Result Diagram: 01/04/17 0442 01/04/17 0442 ABBEY CEJA MD Jan 04, 2017 11:48
[2017-01-04] MEDS: SOD CHLORIDE 0.9% 1,000 ML IV SCH (14:01)
[2017-01-04] MEDS: ROSUVASTATIN CALCIUM 40 MG TABLET PO SCH (21:06)
[2017-01-05] MEDS: HYDROmorphONE 0.2 MG/ML PCA IV SCH (01:17)
[2017-01-05] MEDS: SOD CHLORIDE 0.9% 1,000 ML IV SCH (01:51)
[2017-01-05 02:07] VITALS: BP 115/56; RESP 20
[2017-01-05 05:54] LABS: BASOPHILS % 0.2 % (0.0-2.0); EOSINOPHILS % 0.4 % (0.0-7.0); HEMATOCRIT 27.9 % (42.0-52.0); HEMOGLOBIN 8.7 g/dl (14.0-18.0); LYMPHOCYTES # 1.1 10^3/ul (0.8-2.9); LYMPHOCYTES % 10.5 % (15.0-51.0); MEAN CORPUSCULAR HGB CONC 31.2 g/dl (32.0-37.0); MEAN CORPUSCULAR VOLUME 99.3 fl (82.0-101.0); MEAN PLATELET VOLUME 11.1 fl (7.4-10.4); MONOCYTE # 1.4 10^3/ul (0.3-0.9); MONOCYTES % 13.6 % (0.0-11.0); NEUTROPHIL # 7.5 10^3/ul (1.6-7.5); NEUTROPHILS % 74.8 % (39.0-77.0); PLATELET COUNT 152 10^3/UL (140-415); RED BLOOD COUNT 2.81 10^6/ul (4.70-6.10); RED CELL DISTRIBUTION WIDTH 12.8 % (11.5-14.5)
[2017-01-05] MEDS: PANTOPRAZOLE (EC) 40 MG TAB PO SCH (06:13)
[2017-01-05 06:37] LABS: CALCIUM 8.4 mg/dl (8.4-10.2); CREATININE 1.93 mg/dl (0.61-1.24); POTASSIUM 5.4 mmol/L (3.5-5.1)
--- NOTE | 2017-01-05 07:54 | CONS ---
Date/Time of Note Date/Time of Note DATE: 01/05/17 TIME: 07:49 Assessment/Plan Assessment/Plan Additional Assessment/Plan 1. Stable post op lumbar back surgery. 2. Acute renal failure has resolved. 3. Mild in K+, will not resume arb, kayexelate given, follow up potassium ordered 4. Edema unchanged, BNP noted, will mobilize with Bumex 1 mg today as he was taking this preop 5. ASHD, asx 6. BP is controlled, clonidine reduced to usual hs dose and added amlodipine bid. 7. Sore throat sec to intubation, viscus lidocaine ordered Consultation Date/Type/Reason Admit Date/Time Jan 03, 2017 at 05:17 Type of Consultation: Cardiology Referring Provider: PAYAL BEST MD Detailed Summary ENT: sore throat Respiratory: no complaints Cardiovascular: no complaints Gastrointestinal: no complaints Genitourinary: other (jacobsen in place) Musculoskeletal: back pain (mild-mod) Exam/Review of Systems Vital Signs Vitals Vital Signs Date Time Temp Pulse Resp B/P Pulse Ox O2 Delivery O2 Flow Rate FiO2 01/05/17 05:00 18 01/05/17 02:07 98.7 81 115/56 96 01/04/17 13:10 Nasal Cannula 2.0 Intake and Output 01/04/17 01/04/17 01/05/17 15:00 23:00 07:00 Intake Total 700 ml 1520 ml Output Total 1200 ml 745 ml Balance -500 ml 775 ml Exam ENMT: other (throat is nl) Neck: non-tender, other (no cx adenopathy), No jvd, No thyromegaly Respiratory: clear to auscultation Cardiovascular: regular rate and rhythm Gastrointestinal: soft, No hepatomegaly, No tender Extremities: edema (is unchanged) Results Result Diagram: 01/05/17 0452 01/05/17 0452 Results 24 hrs Laboratory Tests Test 01/04/17 10:00 01/05/17 04:52 Urine Color YELLOW Urine Clarity SLIGHTLY CLOUDY A Urine pH 5.0 Urine Specific [place] 1.020 Urine Ketones NEGATIVE Urine Nitrite NEGATIVE Urine Bilirubin NEGATIVE Urine Urobilinogen NEGATIVE Urine Leukocyte Esterase NEGATIVE Urine Microscopic RBC 17 H Urine Microscopic WBC 3 Urine Hemoglobin 2+ H Urine Random Sodium 101 H Urine Glucose NEGATIVE Urine Total Protein NEGATIVE White Blood Count 10.0 Red Blood Count 2.81 L Hemoglobin 8.7 L Hematocrit 27.9 L Mean Corpuscular Volume 99.3 Mean Corpuscular Hemoglobin 31.0 Mean Corpuscular Hemoglobin Concent 31.2 L Red Cell Distribution Width 12.8 Platelet Count 152 Mean Platelet Volume 11.1 H Neutrophils % 74.8 Lymphocytes % 10.5 L Monocytes % 13.6 H Eosinophils % 0.4 Basophils % 0.2 Nucleated Red Blood Cells % 0.0 Neutrophils # 7.5 Lymphocytes # 1.1 Monocytes # 1.4 H Eosinophils # 0.0 Basophils # 0.0 Nucleated Red Blood Cells # 0.0 Sodium Level 142 Potassium Level 5.4 H Chloride Level 108 Carbon Dioxide Level 27 Anion Gap 12 Blood Urea Nitrogen 42 H Creatinine 1.93 H Glucose Level 98 Calcium Level 8.4 Phosphorus Level 3.3 Magnesium Level 2.0 Medications Medications Current Medications Acetaminophen/ Hydrocodone Bitart ([place] (10/325)) 1 tab Q4H PRN PO PAIN LEVEL 1-5; Start 01/03/17 at 07:00 Acetaminophen/ Hydrocodone Bitart ([place] (10/325)) 2 tab Q4H PRN PO PAIN LEVEL 6-10 Last administered on 01/04/17 09:43; Admin Dose 2 TAB; Start 01/03/17 at 07:00 Hydromorphone HCl (Dilaudid) 0.2 mg Q1H PRN IV BREAKTHROUGH PAIN; Start at 07:00 Ondansetron HCl (Zofran Inj) 4 mg Q6H PRN IV NAUSEA AND/OR VOMITING; Start 01/03/17 at 07:00 Bisacodyl (Dulcolax Supp) 10 mg DAILY PRN [place] CONSTIPATION; Start 01/03/17 at 07 :00 Docusate Sodium (Colace) 100 mg BID PO Last administered on 01/04/17 09:43; Admin Dose 100 MG; Start 01/03/17 at 09:00 Pantoprazole (Protonix Tab) 40 mg DAILY@06 PO Last administered on 01/05/17 06 :13; Admin Dose 40 MG; Start 01/04/17 at 06:00 Al Hydrox/Mg Hydrox/Simethicone (Mag-Al Plus) 15 ml Q6H PRN PO CONSTIPATION/ DYSPEPSIA Last administered on 01/04/17 04:25; Admin Dose 15 ML; Start at 07:00 Acetaminophen (Tylenol Tab) 650 mg Q4H PRN PO GHOTRA OR TEMP GREATER THAN 101.3F; Start 01/03/17 at 07:00 Ferrous Sulfate (Ferrous Sulfate (Ec)) 325 mg TID PO Last administered on 21:05; Admin Dose 325 MG; Start 01/03/17 at 09:00 Ascorbic Acid (Vitamin C) 1,000 mg DAILY PO Last administered on 01/04/17 09: 45; Admin Dose 1,000 MG; Start 01/03/17 at 09:00 Carisoprodol (Soma) 350 mg TID PRN PO MUSCLE SPASMS; Start 01/03/17 at 07:00 Phenol (Cepastat Lozenge) 1 lozenge PRN PRN [place] SORE THROAT Last administered on 01/04/17 21:30; Admin Dose 1 LOZENGE; Start 01/03/17 at 07:00 Diphenhydramine HCl (Benadryl) 25 mg Q6H PRN PO ITCHING; Start 01/03/17 at 07: 00 Diphenhydramine HCl (Benadryl) 25 mg Q6H PRN IV ITCHING; Start 01/03/17 at 07: 00 Naloxone HCl (Narcan) 0.2 mg Q2M PRN IV RR 8 BREATHS/MIN OR LESS; Start at 07:00 Miscellaneous Information 1. Hold WORT EXTRACTOR at 1,000... WORT EXTRACTOR IV ; Start 01/03/17 at 07: 00 Docusate Sodium (Colace) 100 mg BID PRN PO CONSTIPATION; Start 01/03/17 at 13: 00 EZETIMIBE (Zetia) 10 mg DAILY PO Last administered on 01/04/17 09:45; Admin Dose 10 MG; Start 01/04/17 at 09:00 Prednisone (Prednisone) 10 mg DAILY PO Last administered on 01/04/17 09:43; Admin Dose 10 MG; Start 01/04/17 at 09:00 Rosuvastatin Calcium (Crestor) 40 mg QHS PO Last administered on 01/04/17 21: 06; Admin Dose 40 MG; Start 01/03/17 at 21:00 Hydromorphone HCl WORT EXTRACTOR to be started in PACU Q4PCA IV Last administered on 01:17; Admin Dose 6 MG; Start 01/03/17 at 14:30 Sodium Chloride (NS) 1,000 ml @ 80 mls/hr [id number] IV Last administered on 01/05 01:51; Admin Dose 80 MLS/HR; Start 01/04/17 at 08:30 Clonidine (Catapres) 0.1 mg TID PO ; Start 01/04/17 at 13:54 PAYAL BEST MD Jan 05, 2017 07:54
[2017-01-05] MEDS ORDERED: NA POLYST SULFON 15 GM/60 ML BTL PO ONE (08:00)
--- NOTE | 2017-01-05 08:00 | PN ---
Date/Time of Note Date/Time of Note DATE: 01/05/17 TIME: 07:59 Assessment/Plan Lines/Catheters IV Catheter Type (from Nrs): Peripheral IV Mock in Place (from Nrsg): Yes Assessment/Plan Assessment/Plan Postoperative day 2 status post lumbar decompression revision Complains of sore throat. We will monitor labs. We will discontinue Mock and PRODUCTION PLANNING MANAGER. Anticipate discharge tomorrow Subjective 24 Hr Interval Summary Complains of sore throat Exam/Review of Systems Vital Signs Vitals Vital Signs Date Time Temp Pulse Resp B/P Pulse Ox O2 Delivery O2 Flow Rate FiO2 01/05/17 05:00 18 01/05/17 02:07 98.7 81 115/56 96 01/04/17 13:10 Nasal Cannula 2.0 Intake and Output 01/04/17 01/04/17 01/05/17 15:00 23:00 07:00 Intake Total 700 ml 1520 ml Output Total 1200 ml 745 ml Balance -500 ml 775 ml Exam Free Text/Dictation Neurovascularly intact Results Result Diagram: 01/05/17 0452 01/05/17 0452 ABBEY CEJA MD Jan 05, 2017 08:00
[2017-01-05 08:12] VITALS: BP 144/65
[2017-01-05] MEDS ORDERED: BUMETANIDE 1 MG TAB PO SCH (08:30)
[2017-01-05] MEDS: LIDOCAINE 2% VISC 15 ML CUP PO SCH ×3 (08:57→21:00)
[2017-01-05] MEDS: FERROUS SULFATE (EC) 325 MG TAB PO SCH ×3 (08:58→21:32)
[2017-01-05] MEDS: predniSONE 10 MG TAB PO SCH (08:58)
[2017-01-05] MEDS: AMLODIPINE 2.5 MG TAB PO SCH ×2 (08:58→21:32)
[2017-01-05] MEDS: ASCORBIC ACID 500 MG TAB PO SCH (08:58)
[2017-01-05] MEDS: DOCUSATE SODIUM 100 MG CAP PO SCH ×2 (08:59→21:32)
[2017-01-05] MEDS: EZETIMIBE 10 MG TAB PO SCH (08:59)
[2017-01-05 14:00] VITALS: BP 135/69; RESP 19
[2017-01-05] MEDS: HYDROCODONE/APAP (10/325) TAB PO PRN ×2 (15:40→21:33)
[2017-01-05 19:48] VITALS: BP 139/76; RESP 20
[2017-01-05] MEDS: MUPIROCIN 2% 22 GM OINT TOP SCH (21:32)
[2017-01-05] MEDS: ROSUVASTATIN CALCIUM 40 MG TABLET PO SCH (21:32)
[2017-01-06 02:10] VITALS: BP 107/62; RESP 18
[2017-01-06] MEDS: HYDROCODONE/APAP (10/325) TAB PO PRN ×3 (02:39→12:59)
[2017-01-06 06:14] LABS: CALCIUM 7.9 mg/dl (8.4-10.2); CREATININE 1.59 mg/dl (0.61-1.24); MAGNESIUM 1.7 mg/dl (1.7-2.5); POTASSIUM 5.1 mmol/L (3.5-5.1)
[2017-01-06] MEDS: PANTOPRAZOLE (EC) 40 MG TAB PO SCH (06:15)
[2017-01-06 06:18] LABS: BASOPHILS % 0.2 % (0.0-2.0); EOSINOPHILS # 0.1 10^3/ul (0.0-0.5); EOSINOPHILS % 0.8 % (0.0-7.0); HEMATOCRIT 28.3 % (42.0-52.0); HEMOGLOBIN 9.2 g/dl (14.0-18.0); LYMPHOCYTES # 1.1 10^3/ul (0.8-2.9); LYMPHOCYTES % 11.8 % (15.0-51.0); MEAN CORPUSCULAR HEMOGLOBIN 31.2 pg (29.0-33.0); MEAN CORPUSCULAR HGB CONC 32.5 g/dl (32.0-37.0); MEAN CORPUSCULAR VOLUME 95.9 fl (82.0-101.0); MEAN PLATELET VOLUME 11.9 fl (7.4-10.4); MONOCYTE # 1.1 10^3/ul (0.3-0.9); MONOCYTES % 11.8 % (0.0-11.0); NEUTROPHIL # 6.7 10^3/ul (1.6-7.5); NEUTROPHILS % 74.8 % (39.0-77.0); PLATELET COUNT 137 10^3/UL (140-415); POSITIVE DIFF @See below; RED BLOOD COUNT 2.95 10^6/ul (4.70-6.10); RED CELL DISTRIBUTION WIDTH 12.7 % (11.5-14.5)
[2017-01-06 07:47] VITALS: BP 108/55; RESP 18
--- NOTE | 2017-01-06 08:12 | CONS ---
Date/Time of Note Date/Time of Note DATE: 01/06/17 TIME: 08:05 Assessment/Plan Assessment/Plan Additional Assessment/Plan 1. Post op lumbar back surgery with pain right leg that is better today, await ortho follow up and can dc pending ortho eval land pt eval 2. Renal fx has improved 3. BP is stable 4. Anemia noted, stable 5. ASHD, asx 6. Hyperkalemia improved and should resolve with addition of bumex daily 7. Rev with pt, told not to resume KCL until monday and will need to follow up with reg md late next week. Consultation Date/Type/Reason Admit Date/Time Jan 03, 2017 at 05:17 Type of Consultation: Cardiology Referring Provider: PAYAL BEST MD Detailed Summary ENT: No sore throat Respiratory: No cough, No shortness of breath Cardiovascular: no complaints Gastrointestinal: No nausea, No pain, No vomiting Genitourinary: no complaints Musculoskeletal: back pain (mild-mold and some discomfort right leg and right leg was "weak" yesterday when tried to walk and was better this am) Neurologic: No headache Exam/Review of Systems Vital Signs Vitals Vital Signs Date Time Temp Pulse Resp B/P Pulse Ox O2 Delivery O2 Flow Rate FiO2 01/06/17 07:47 97.3 74 18 108/55 95 01/04/17 13:10 Nasal Cannula 2.0 Intake and Output 01/05/17 01/05/17 01/06/17 14:59 22:59 06:59 Intake Total 200 ml 840 ml 240 ml Output Total 1200 ml Balance 200 ml -360 ml 240 ml Exam Neck: No jvd Respiratory: clear to auscultation Cardiovascular: regular rate and rhythm Gastrointestinal: soft, No tender Extremities: edema (1+ edema and no calf tend) Neurological: No focal weakness Results Result Diagram: 01/06/17 0501 01/06/17 0501 Results 24 hrs Laboratory Tests Test 01/05/17 13:56 01/06/17 05:01 Potassium Level 4.5 5.1 White Blood Count 9.0 Red Blood Count 2.95 L Hemoglobin 9.2 L Hematocrit 28.3 L Mean Corpuscular Volume 95.9 Mean Corpuscular Hemoglobin 31.2 Mean Corpuscular Hemoglobin Concent 32.5 Red Cell Distribution Width 12.7 Platelet Count 137 L Mean Platelet Volume 11.9 H Neutrophils % 74.8 Lymphocytes % 11.8 L Monocytes % 11.8 H Eosinophils % 0.8 Basophils % 0.2 Nucleated Red Blood Cells % 0.0 Neutrophils # 6.7 Lymphocytes # 1.1 Monocytes # 1.1 H Eosinophils # 0.1 Basophils # 0.0 Nucleated Red Blood Cells # 0.0 Sodium Level 140 Chloride Level 106 Carbon Dioxide Level 25 Anion Gap 14 Blood Urea Nitrogen 36 H Creatinine 1.59 H Glucose Level 93 Calcium Level 7.9 L Magnesium Level 1.7 Medications Medications Current Medications Acetaminophen/ Hydrocodone Bitart ([place] ()) 1 tab Q4H PRN PO PAIN LEVEL 1-5 Last administered on 01/05/17 10:31; Admin Dose 1 TAB; Start 01/03/17 at 07 :00 Acetaminophen/ Hydrocodone Bitart ([place] ()) 2 tab Q4H PRN PO PAIN LEVEL 6-10 Last administered on 01/06/17 02:39; Admin Dose 2 TAB; Start 01/03/17 at 07:00 Hydromorphone HCl (Dilaudid) 0.2 mg Q1H PRN IV BREAKTHROUGH PAIN Last administered on 01/05/17 13:51; Admin Dose 0.2 MG; Start 01/03/17 at 07:00 Ondansetron HCl (Zofran Inj) 4 mg Q6H PRN IV NAUSEA AND/OR VOMITING; Start 01/03/17 at 07:00 Bisacodyl (Dulcolax Supp) 10 mg DAILY PRN [place] CONSTIPATION; Start 01/03/17 at 07 :00 Docusate Sodium (Colace) 100 mg BID PO Last administered on 01/05/17 21:32; Admin Dose 100 MG; Start 01/03/17 at 09:00 Pantoprazole (Protonix Tab) 40 mg DAILY@06 PO Last administered on 01/06/17 06:15; Admin Dose 40 MG; Start 01/04/17 at 06:00 Al Hydrox/Mg Hydrox/Simethicone (Mag-Al Plus) 15 ml Q6H PRN PO CONSTIPATION/ DYSPEPSIA Last administered on 01/04/17 04:25; Admin Dose 15 ML; Start at 07:00 Acetaminophen (Tylenol Tab) 650 mg Q4H PRN PO GHOTRA OR TEMP GREATER THAN 101.3F; Start 01/03/17 at 07:00 Ferrous Sulfate (Ferrous Sulfate (Ec)) 325 mg TID PO Last administered on 21:32; Admin Dose 325 MG; Start 01/03/17 at 09:00 Ascorbic Acid (Vitamin C) 1,000 mg DAILY PO Last administered on 01/05/17 08: 58; Admin Dose 1,000 MG; Start 01/03/17 at 09:00 Carisoprodol (Soma) 350 mg TID PRN PO MUSCLE SPASMS Last administered on 12:53; Admin Dose 350 MG; Start 01/03/17 at 07:00 Phenol (Cepastat Lozenge) 1 lozenge PRN PRN [place] SORE THROAT Last administered on 01/04/17 21:30; Admin Dose 1 LOZENGE; Start 01/03/17 at 07:00 Diphenhydramine HCl (Benadryl) 25 mg Q6H PRN PO ITCHING; Start 01/03/17 at 07: 00 Diphenhydramine HCl (Benadryl) 25 mg Q6H PRN IV ITCHING; Start 01/03/17 at 07: 00 Naloxone HCl (Narcan) 0.2 mg Q2M PRN IV RR 8 BREATHS/MIN OR LESS; Start at 07:00 Miscellaneous Information 1. Hold CAR INSPECTOR at 1,000... CAR INSPECTOR IV ; Start 01/03/17 at 07: 00 Docusate Sodium (Colace) 100 mg BID PRN PO CONSTIPATION; Start 01/03/17 at 13: 00 EZETIMIBE (Zetia) 10 mg DAILY PO Last administered on 01/05/17 08:59; Admin Dose 10 MG; Start 01/04/17 at 09:00 Prednisone (Prednisone) 10 mg DAILY PO Last administered on 01/05/17 08:58; Admin Dose 10 MG; Start 01/04/17 at 09:00 Rosuvastatin Calcium (Crestor) 40 mg QHS PO Last administered on 01/05/17 21: 32; Admin Dose 40 MG; Start 01/03/17 at 21:00 Hydromorphone HCl CAR INSPECTOR to be started in PACU Q4PCA IV Last administered on 01:17; Admin Dose 6 MG; Start 01/03/17 at 14:30 Sodium Chloride (NS) 1,000 ml @ 0 mls/hr [id number] IV Last administered on 01:51; Admin Dose 80 MLS/HR; Start 01/04/17 at 08:30 Clonidine (Catapres) 0.2 mg HS PO Last administered on 01/05/17 21:33; Admin Dose 0.2 MG; Start 01/05/17 at 21:00 Amlodipine Besylate (Norvasc) 2.5 mg BID PO Last administered on 01/05/17 21: 32; Admin Dose 2.5 MG; Start 01/05/17 at 09:00 Lidocaine (Xylocaine (Viscous)) 15 ml TID PO Last administered on 01/05/17 12: 53; Admin Dose 15 ML; Start 01/05/17 at 09:00 Mupirocin (Bactroban) 1 applic BID TOP Last administered on 01/05/17 21:32; Admin Dose 1 APPLIC; Start 01/05/17 at 21:00 Bumetanide (Bumex) 1 mg ONCE ONCE PO ; Start 01/06/17 at 08:30; Stop at 08:31; Status PAYAL PEDRO MD Jan 06, 2017 08:12
--- NOTE | 2017-01-06 08:13 | PDOCDIS ---
Discharge Instructions CONDITION Patient Condition: Stable HOME CARE INSTRUCTIONS: Special Diet: REGULAR OTHER ORDERS: Other Orders: 1. To follow up with his reg md by the end of next week, all labs to be given to the pt 2. Not to use ASA in any form until monday 3. Not to resume kcl until monday PAYAL BEST MD Jan 06, 2017 08:13
[2017-01-06] MEDS ORDERED: FER325 PO (08:15)
[2017-01-06] MEDS: AMLODIPINE 2.5 MG TAB PO SCH (08:59)
[2017-01-06] MEDS: LIDOCAINE 2% VISC 15 ML CUP PO SCH ×2 (08:59→13:00)
[2017-01-06] MEDS: ASCORBIC ACID 500 MG TAB PO SCH (08:59)
[2017-01-06] MEDS: DOCUSATE SODIUM 100 MG CAP PO SCH (08:59)
[2017-01-06] MEDS: FERROUS SULFATE (EC) 325 MG TAB PO SCH ×2 (08:59→12:59)
[2017-01-06] MEDS: predniSONE 10 MG TAB PO SCH (08:59)
[2017-01-06] MEDS: EZETIMIBE 10 MG TAB PO SCH (08:59)
[2017-01-06] MEDS ORDERED: BUMETANIDE 1 MG TAB PO ONE (09:00)
[2017-01-06] MEDS: MUPIROCIN 2% 22 GM OINT TOP SCH (09:00)
--- NOTE | 2017-01-06 09:40 | DS ---
Date/Time of Note Date/Time of Note DATE: 01/06/17 TIME: 09:37 Discharge Summary Admission/Discharge Info Admit Date/Time Jan 03, 2017 at 05:17 Discharge Date/Time jan 06 Discharge Diagnosis s/p lumbar decompression Patient Condition: Good Procedures revision lumbar decompression Hx of Present Illness back and leg pain Hospital Course the patient was admitted to the ICU after undergoing revision lumbar decompression. He did well in the ICU and was transferred to ortho porter on post op day 1. the remainder of the hospital course was uncomplicated. by POD 3 he was deemed stable for d/c with f/u arranged with the undersigned. Home Meds Active Scripts Ferrous Sulfate* (Ferrous Sulfate*) 325 Mg Tabec, 325 MG PO TID for 30 Days, TAB Prov:PAYAL BEST MD 01/06/17 Reported Medications Hydrocodone/Acetaminophen ([place] 5-325 Tablet) 1 Each Tablet, 1 EACH PO TID, TAB 01/03/17 Clonidine Hcl* (Clonidine Hcl*) 0.2 Mg Tablet, 0.2 MG PO DAILY, TAB 01/03/17 Prednisone (Prednisone) 10 Mg Tab, 10 MG PO DAILY, TAB 01/03/17 Docusate Sodium* (Doc-Q-Lace*) 100 Mg Capsule, 100 MG PO BID Y for CONSTIPATION , CAP 01/03/17 Meclizine Hcl* (Meclizine Hcl*) 25 Mg Tablet, 30 MG PO DAILY Y for DIZZINESS, TAB 01/03/17 Lansoprazole* (Lansoprazole*) 30 Mg Capsule.dr, 30 MG PO DAILY, CAP 01/03/17 Ezetimibe* (Zetia*) 10 Mg Tablet, 10 MG PO DAILY, TAB 01/03/17 Tramadol HCl (Tramadol HCl) 50 Mg Tablet, 50 MG PO DAILY, #60 TAB 01/03/17 Bumetanide* (Bumetanide*) 1 Mg Tablet, 1 MG PO DAILY, TAB 01/03/17 Valsartan* (Diovan*) 320 Mg Tablet, 320 MG PO DAILY, TAB 01/03/17 Rosuvastatin Calcium* (Crestor*) 40 Mg Tablet, 40 MG PO QHS, #30 TAB 01/03/17 Diltiazem Hcl* (Cardizem CD*) 240 Mg Cap.sr.24h, 240 MG PO DAILY, #30 CAP 01/03/17 Discontinued Reported Medications Celecoxib* (Celebrex*) 100 Mg Capsule, 100 MG PO DAILY, CAP 01/03/17 Potassium Chloride* (Potassium Chloride*) 8 Meq Capsule.er, 10 MEQ PO DAILY, CAP 01/03/17 Aspirin Ec (Aspir 81) 81 Mg Tablet.dr, 81 MG PO DAILY, #30 TAB 01/03/17 Primary Care Provider Not On Staff Doctor Pending Labs Laboratory Tests Test 01/05/17 13:56 01/06/17 05:01 Potassium Level 4.5mmol/L (3.5-5.1) 5.1mmol/L (3.5-5.1) White Blood Count 9.010^3/ul (4.8-10.8) Red Blood Count 2.9510^6/ul (4.70-6.10) Hemoglobin 9.2g/dl (14.0-18.0) Hematocrit 28.3% (42.0-52.0) Mean Corpuscular Volume 95.9fl (82.0-101.0) Mean Corpuscular Hemoglobin 31.2pg (29.0-33.0) Mean Corpuscular Hemoglobin Concent 32.5g/dl (32.0-37.0) Red Cell Distribution Width 12.7% (11.5-14.5) Platelet Count 79597^3/UL (140-415) Mean Platelet Volume 11.9fl (7.4-10.4) Neutrophils % 74.8% (39.0-77.0) Lymphocytes % 11.8% (15.0-51.0) Monocytes % 11.8% (0.0-11.0) Eosinophils % 0.8% (0.0-7.0) Basophils % 0.2% (0.0-2.0) Nucleated Red Blood Cells % 0.0/100WBC (0.0-0.0) Neutrophils # 6.710^3/ul (1.6-7.5) Lymphocytes # 1.110^3/ul (0.8-2.9) Monocytes # 1.110^3/ul (0.3-0.9) Eosinophils # 0.110^3/ul (0.0-0.5) Basophils # 0.010^3/ul (0.0-0.1) Nucleated Red Blood Cells # 0.010^3/ul (0.0-0.0) Sodium Level 140mmol/L (135-144) Chloride Level 106mmol/L (97-110) Carbon Dioxide Level 25mmol/L (21-31) Anion Gap 14 (8-16) Blood Urea Nitrogen 36mg/dl (7-20) Creatinine 1.59mg/dl (0.61-1.24) Glucose Level 93mg/dl (70-220) Calcium Level 7.9mg/dl (8.4-10.2) Magnesium Level 1.7mg/dl (1.7-2.5) ABBEY ECJA MD Jan 06, 2017 09:39
[2017-01-06] MEDS ORDERED: MAGNESIUM SULFATE 2 GM/50 ML 50 ML IVPB ONE (10:00)
== END 2017-01-06 14:15 | disposition home or self-care (01) | DRG 496 ==
LOC: REC 05:17 → ICU 11:20 → MS1 01-04 12:28
PROVIDERS: ADMIT Specialist; ATTEND Specialist
PROC: 01NB0ZZ Release Lumbar Nerve, Open Approach (ICD-10-PCS; 2017-01-03)
PROC: 0QP004Z Removal of Internal Fixation Device from Lumbar Vertebra, Open Approach (ICD-10-PCS; principal; 2017-01-03 07:00)
DX: M48.07 Spinal stenosis, lumbosacral region (principal); N17.9 Acute kidney failure, unspecified; E87.5 Hyperkalemia; I44.1 Atrioventricular block, second degree; Z95.1 Presence of aortocoronary bypass graft; M48.061 Spinal stenosis, lumbar region without neurogenic claudication; I25.10 Atherosclerotic heart disease of native coronary artery without angina pectoris; I10 Essential (primary) hypertension; E78.5 Hyperlipidemia, unspecified; I25.2 Old myocardial infarction; J02.9 Acute pharyngitis, unspecified; M54.16 Radiculopathy, lumbar region; M54.17 Radiculopathy, lumbosacral region; Z95.5 Presence of coronary angioplasty implant and graft; Z79.82 Long term (current) use of aspirin
CPT/HCPCS: 72100; 80048; 81001; 83735; 83880; 84100; 84132; 84300; 84443; 85025; 86850; 86900; 86901; 86920; 86999; 87081; 87086; 88304; 88311; 93970; 97116; 97161; 97530; C1713; C9113; J0690; J1170; J1644; J1720; J2175; J2405; J3010; J3475; J3480; J7030; J7512